=== PATIENT | female | born 1975 | race African-American/Black ===

== ENCOUNTER 2017-12-05 06:14 | Emergency (ER) | payer OTHER ==
[2017-12-05] MEDS: diazePAM 5 MG TAB PO (07:45)
[2017-12-05] MEDS: KETOROLAC 60 MG/2 ML VIAL (J1885) IM (07:45)
== END 2017-12-05 09:06 | disposition home or self-care (01) ==
LOC: M ED 06:14
DX: M51.26 Other intervertebral disc displacement, lumbar region (principal); M51.27 Other intervertebral disc displacement, lumbosacral region; M54.17 Radiculopathy, lumbosacral region; G89.29 Other chronic pain; Z79.899 Other long term (current) drug therapy
CPT/HCPCS: J1885